=== PATIENT | male | born 1960 | race Caucasian/White ===

== ENCOUNTER 2021-08-20 00:04 | Observation (INO) | payer MEDICARE, SELFPAY ==
[2021-08-21] MEDS ORDERED: Acetaminophen 650 MG Suppository PR PRN (01:57)
[2021-08-21] MEDS ORDERED: Dextrose 50% Abboject 50 ML SYRINGE SLOW IVP PRN (01:57)
[2021-08-21] MEDS ORDERED: Acetaminophen 325 MG TAB PO PRN (01:57)
[2021-08-21] MEDS ORDERED: Dextrose 5% in Water 1,000 ML IV PRN (01:57)
[2021-08-21] MEDS ORDERED: Calcium Carbonate 500 MG ChewTAB PO PRN (01:57)
[2021-08-21] MEDS ORDERED: HumaLOG 300 UNITS/3 ML VIAL SC PRN ×2 (01:58)
[2021-08-21 02:59] VITALS: BMI 36.0
[2021-08-21] MEDS ORDERED: Nitroglycerin 0.4 MG TAB (25 Tab Bottle) SL PRN (03:01)
[2021-08-21 06:10] LABS: #Eosinphils 0.1 thou/uL (0.0-0.7); #Lymphocytes 1.8 thou/uL (1.20-3.40); #Monocytes 0.5 thou/uL (0.11-0.59); #Neutrophils 2.2 thou/uL (1.40-6.50); %Basophils 0.6 % (0.0-1.0); %Eosinophils 2.7 % (0.0-10.0); %Lymphocytes 38.3 % (21.0-51.0); %Monocytes 10.3 % (0.0-10.0); %Neutrophils 48.2 % (42.0-75.0); Hemoglobin 11.3 g/dL (14.0-18.0); Mean Corpuscular HGB CONC 32.3 g/dL (32.0-36.0); Mean Corpuscular Hemoglobin 25.4 pg (27.0-31.0); Mean Corpuscular Volume 78.8 fL (78.0-98.0); Mean Platelet Volume 9.5 fL (7.4-10.4); Platelet Count 147 thou/uL (130-400); RBC Distribution Width 14.9 % (11.5-14.5); Red Blood Cell (RBC) Count 4.45 mill/uL (4.70-6.10); White Blood Cell (WBC) Count 4.6 thou/uL (4.8-10.8)
[2021-08-21 06:31] LABS: Anion Gap 11 mmol/L (10-20); BUN (Urea Nitrogen) 26 mg/dL (8.4-25.7); Calc. Creatinine Clearance 87 mL/min (70-130); Calcium 8.9 mg/dL (7.8-10.44); Carbon Dioxide 24 mmol/L (22-29); Cardiac Risk 4.7 (Less than 4.5); Chloride 106 mmol/L (98-107); Cholesterol 85 mg/dl (< 200 Desired); Glucose 147 mg/dL (70-105); HDL Cholesterol 18 mg/dL (>60 Neg Risk); LDL Cholesterol, Calculated 33 mg/dL; Potassium 3.8 mmol/L (3.5-5.1); Sodium 137 mmol/L (136-145); Triglycerides 169 mg/dL (Less than 150)
[2021-08-21 07:22] LABS: Hemoglobin A1c 8.1 % (4.0-6.0)
[2021-08-21] MEDS: HYDROcodone/Acetaminophen 10/325 mg Tablet PO PRN ×2 (08:45→14:14)
[2021-08-21] MEDS: HumaLOG 300 UNITS/3 ML VIAL SC SCH ×2 (08:47→14:17)
[2021-08-21] MEDS ORDERED: Aspirin 81 mg Enteric Coated Tablet PO SCH (09:00)
[2021-08-21] MEDS ORDERED: Tamsulosin HCl 0.4 MG CAP PO SCH (09:00)
[2021-08-21] MEDS ORDERED: Pregabalin 50 MG CAP PO SCH (09:00)
[2021-08-21] MEDS ORDERED: Rosuvastatin 20 MG TAB PO SCH (09:00)
[2021-08-21] MEDS ORDERED: Baclofen 10 MG TAB PO SCH (09:00)
[2021-08-21] MEDS ORDERED: Heparin 5,000 UNITS/ML VIAL SC SCH (09:00)
[2021-08-21] MEDS ORDERED: Empagliflozin 10 MG TAB PO SCH (09:00)
[2021-08-21] MEDS ORDERED: Lantus 1000 UNITS/10 ML VIAL SC SCH (09:00)
[2021-08-21] MEDS ORDERED: Clopidogrel Bisulfate 75 MG TAB PO SCH (09:00)
[2021-08-21] MEDS ORDERED: Furosemide 40 MG TAB PO SCH (09:00)
[2021-08-21 11:48] VITALS: TEMP 97.5
[2021-08-21 16:39] VITALS: BP 111/55
== END 2021-08-21 15:30 | disposition home or self-care (01) ==
LOC: EDBD 08-21 00:01 → NEURO 08-21 00:01
PROVIDERS: ADMIT Emergency Medicine; ATTEND Emergency Medicine
DX: G45.9 Transient cerebral ischemic attack, unspecified (principal); E11.40 Type 2 diabetes mellitus with diabetic neuropathy, unspecified; I50.9 Heart failure, unspecified; I25.10 Atherosclerotic heart disease of native coronary artery without angina pectoris; G89.29 Other chronic pain; M54.9 Dorsalgia, unspecified; G47.00 Insomnia, unspecified; D64.9 Anemia, unspecified; R23.8 Other skin changes; Z79.02 Long term (current) use of antithrombotics/antiplatelets; Z79.4 Long term (current) use of insulin; Z79.82 Long term (current) use of aspirin; Z79.84 Long term (current) use of oral hypoglycemic drugs; Z79.899 Other long term (current) drug therapy; Z91.018 Allergy to other foods; Z95.5 Presence of coronary angioplasty implant and graft
CPT/HCPCS: 36415; 36416; 70551; 80048; 80061; 83036; 85025; G0378; J1644; J1815